=== PATIENT | male | born 1965 | race Caucasian/White ===

== ENCOUNTER 2021-03-06 14:32 | Emergency (ER) | payer OTHER ==
[~2021-03-06] VITALS: Ht 195.6 cm; Wt 111.1 kg
[~2021-03-06 14:32] MED LIST: GLIPIZIDE 10 MG10 MG PO; LISINOPRIL5 MG PO; METFORMIN HCL500 MG PO; TESSALON PERLE100 MG PO; VENTOLIN HFA 1818 GM INH; ZPAK PO
[2021-03-06] MEDS ORDERED: LOVASTATIN 20 M20 MG PO (14:40)
[2021-03-06] MEDS ORDERED: JARDIANCE10 MG PO (14:40)
[2021-03-06] MEDS ORDERED: BYDUREON B2 MG/0.85 (14:41)
[2021-03-06 15:15] LABS: ABSOLUTE EOSINOPHILS 0.3 thou/uL (0.0-0.7); ABSOLUTE LYMPHOCYTES 1.9 thou/uL (0.8-5.3); ABSOLUTE MONOCYTES 0.6 thou/uL (0.0-1.2); ABSOLUTE NEUTROPHILS 3.4 thou/uL (1.6-8.1); BASOPHILS 0.7 %; EOSINOPHILS 5.1 %; HEMATOCRIT 45.7 % (42.0-52.0); HEMOGLOBIN 15.7 gm/dL (14.0-18.0); LYMPHOCYTES 30.6 %; MCH 31.6 pg (26.0-34.0); MCHC 34.4 g/dL (28.0-37.0); MCV 91.7 fL (80.0-100.0); MONOCYTES 9.6 %; MPV 7.9 fl. (7.2-11.1); NUCLEATED RBCS 0 /100WBC; PLATELET COUNT* 197 thou/uL (150-400); RBC 4.99 mil/uL (4.50-6.00); RDW-CV 13.3 % (10.5-14.5); WBC 6.3 thou/uL (4.0-11.0)
[2021-03-06 15:15] LABS: URINE BILIRUBIN NEGATIVE (Negative); URINE BLOOD NEGATIVE (Negative); URINE CLARITY CLEAR; URINE COLOR YELLOW; URINE GLUCOSE-RANDOM 3+ (Negative); URINE KETONES NEGATIVE (Negative); URINE LEUKOCYTES NEGATIVE (Negative); URINE NITRITE NEGATIVE (Negative); URINE PROTEIN NEGATIVE (Negative); URINE UROBILINOGEN 0.2 E.U./dl (0.2-1.0)
[2021-03-06 15:22] LABS: CALCIUM 9.7 mg/dL (8.5-10.1); CREATININE 0.9 mg/dL (0.6-1.3); POTASSIUM 4.1 mmol/L (3.5-5.1)
[2021-03-06] MEDS ORDERED: FLEXERIL PO (16:39)
[2021-03-06] MEDS ORDERED: NORCO5 PO (16:39)
[2021-03-06] MEDS ORDERED: PREDNISONE 20 M20 MG PO (16:39)
[2021-03-06 17:03] VITALS: BP 145/65
== END 2021-03-06 17:03 | disposition home or self-care (01) ==
LOC: M.ERS 14:32
PROVIDERS: Emergency Medicine
DX: M54.5 Low back pain (principal); E11.9 Type 2 diabetes mellitus without complications